=== PATIENT | male | born 1955 | race Hispanic/Latino ===

== ENCOUNTER 2019-09-19 09:48 | Observation (INO) | payer SELFPAY ==
[2019-09-19 11:14] VITALS: BMI 24.2
[2019-09-19] MEDS ORDERED: Morphine 4 MG/ML VIAL SLOW IVP SCH (13:15)
[2019-09-19] MEDS ORDERED: Ondansetron PF 4 MG/2 ML Vial IVP PRN (15:34)
[2019-09-19] MEDS ORDERED: Sodium Chloride 0.9% 1,000 ML IV SCH ×2 (15:34→23:30)
[2019-09-19] MEDS ORDERED: Ondansetron ODT 4 MG TAB SL PRN (15:34)
[2019-09-19] MEDS ORDERED: Ondansetron ODT 4 MG TAB PO PRN (16:17)
[2019-09-19] MEDS ORDERED: Acetaminophen 325 MG TAB PO PRN (16:17)
[2019-09-19] MEDS ORDERED: Ketorolac Tromethamine 30 MG/ML VIAL IVP PRN (16:19)
[2019-09-19] MEDS ORDERED: traMADol HCl 50 MG TAB PO PRN (16:20)
--- NOTE | 2019-09-19 18:27 | HP ---
PRIMARY CARE PHYSICIAN: None. CHIEF COMPLAINT: Right upper quadrant abdominal pain x3 days. HISTORY OF PRESENT ILLNESS: A 63-year-old Lithuanian-speaking male with no reported chronic medical comorbidities, who was transferred from [facility] after 2 ER visits in a several-hour span for complaints of right upper quadrant abdominal pain of 3 days' duration without radiation, and associated complaints of coughing episodes prompting further ED evaluation. The patient denies any trauma to the affected area. He notes pain started 3 days ago. He denies any prodromal complaints. He denies any nausea, vomiting, fevers, chills, dyspnea, dysuria, or any pain going into the back or shoulder blade. Family notes the patient has chronic alcohol use with beer intake, but has not had a drink since September 14. In the ER, CBC and vital signs were unremarkable and chemistries revealed mild transaminitis with initial lipase of 94 with repeat evaluation hours later of 170. A CT of abdomen and pelvis with contrast revealed normal-appearing pancreas and did note a right renal cyst measuring 7.5 x 6.6 x 6.9 cm. A urinalysis was unremarkable. The patient was administered multiple doses of IV morphine, 1 L of IV fluids, admitted for further evaluation. At bedside, the patient has received IV morphine additional dose 4 mg. h is accompanied by daughter and son-in-law. He rates his current pain is minimal, probably 2/10 in severity. He denies any prior similar complaints. He denies any history of pancreatitis. He denies any recent sick contacts. PAST MEDICAL HISTORY: Hypertension, not on medications; alcohol use. PAST SURGICAL HISTORY: Appendectomy. SOCIAL HISTORY: The patient lives at home. He works as a labor. He admits to tobacco and alcohol use. Denies any illicit drug use. ALLERGIES: NONE REPORTED. REVIEW OF SYSTEMS: Pertinent positives as per HPI. Remainder of review of systems is negative. MEDICATIONS: Home medication will be reviewed as per admission medication reconciliation. PHYSICAL EXAMINATION: VITAL SIGNS: Temperature most recently 102.3, pulse 70 to 81, blood pressure 152/103 to 153/103, oxygen saturation 96% on room air, respirations 16 to 20 and unlabored. GENERAL APPEARANCE: This is an elderly thin male, who is awake, alert, oriented, coherent, lucid, not in any obvious distress, and nontoxic in appearance. HEENT: Normocephalic, atraumatic. No facial asymmetry. Mucous membranes moist. Pupils equally round. Extraocular muscles intact. NECK: Supple. CARDIOVASCULAR: S1, S2. Regular rate and rhythm. No harsh murmurs. No reproducible chest wall tenderness to palpation. LUNGS: Bilateral equal air entry on posterior auscultation. Nonlabored respirations. No wheezing or rales. ABDOMEN: There is tenderness to palpation in the right upper quadrant and along the right chondral cartilage with mild palpation. There is no left upper quadrant or left flank or left CVA tenderness to palpation. There is no lower abdominal tenderness to palpation. Normoactive bowel sounds. No peritoneal signs appreciated. EXTREMITIES: No appreciable edema, cyanosis, or deformities. SKIN: Warm to touch without rash or pallor or abrasion. LABORATORY DATA: WBC 6.7, H and H 17.4/53.2, and platelets 131. Sodium 131, potassium 3.4, chloride 98, bicarb 24, glucose 125, BUN and creatinine 12/0.84, and GFR 90. Troponin-I negative. Lipase 170. AST 62, ALT 34, total protein 6.9, and albumin 4.2. Urinalysis reveals dark yellow appearance, 100 protein, 15 ketones, small blood, 4 to 6 rbc's. IMAGING STUDIES: One-view chest x-ray 09/18/2019 suggests no acute findings. Mild increase in linear interstitial density with pulmonary hyperinflation noted. A CT of abdomen and pelvis 09/19/2019 with contrast suggests no evidence of acute intraabdominal or pelvic abnormality. Diverticulosis. Right renal exophytic cyst of the right upper renal pole, measuring 7.5 cm x 6.6 cm and 6.9 cm. ASSESSMENT: 1. Right upper quadrant abdominal pain of unspecified etiology. The patient will be admitted to observation status and placed on Med/Surg unit. Unclear if this is musculoskeletal etiology from persistent coughing episodes or secondary to large right renal cyst or biliary etiology or perhaps from pulmonary infection, noting complaints of cough and objective fevers. At this time, low suspicion for acute pancreatitis and serum lipase levels and clinical presentation and CT findings did not suggest this. We will start on clear liquid diet and advance as the patient tolerates. We will obtain right upper quadrant abdominal ultrasound as well as request evaluation for the right renal cyst. We will start on IV Toradol as needed for anti-inflammatory relief and oral tramadol for breakthrough pain. We will trend fever curve and start on empiric antibiotics if the temperatures persist. Plan of care discussed with the patient and his family members at bedside. 2. Hyponatremia, continue isotonic saline. 3. Chronic alcohol dependence. Family notes the patient binges on beer. Last alcohol use was 09/14/2019 with no reported withdrawal symptoms. We will monitor for any withdrawal symptoms. 4. Nicotine dependence. The patient will benefit from cessation counseling. 5. Hypertension, controlled. Monitor for any other factors contributing to this. Monitor blood pressures. 6. Deep venous thrombosis prophylaxis: SCDs and ambulation. 7. Disposition: The patient will be admitted to observation status. Anticipate less than 24-hour stay pending the patient's clinical course. 8. Check a.m. labs, 09/20/2019. Job ID: [id number]
[2019-09-19] MEDS: Famotidine 20 MG TAB PO SCH (19:58)
[2019-09-19] MEDS ORDERED: hydrALAZINE 20 MG/ML VIAL SLOW IVP PRN (23:29)
[2019-09-20 07:45] VITALS: BP 170/98; TEMP 99.5
--- NOTE | 2019-09-20 07:46 | ULT ---
US Gallbladder RUQ: 09/20/2019 4:20 PM CLINICAL HISTORY: Right upper quadrant abdominal pain. STUDY: Limited right upper quadrant ultrasound of abdomen. COMPARISON: None. FINDINGS: Liver: Size: Normal. Echogenicity: Normal. Contour: Smooth. Mass: None. Bile ducts: No intrahepatic or extrahepatic biliary dilatation. Common bile duct measures 4 mm. Gallbladder: Normal. Pancreas: Not well visualized Right kidney: No pelvicalyceal dilatation. Right kidney measuring 12.7 cm in length. There is a large cyst in the superior pole the right kidney measuring 7.3 cm in greatest dimension. IMPRESSION: Right renal cyst
[2019-09-20] MEDS ORDERED: FLU VACC QS2019-20(6MOS UP)/PF 60 MCG/0.5 ML SYRINGE IM ONE (09:00)
[2019-09-20] MEDS: Famotidine 20 MG TAB PO SCH (10:27)
== END 2019-09-20 16:25 | disposition home or self-care (01) ==
LOC: T4-B 09:48 → INTOOBSV 09:48
PROVIDERS: ADMIT Internal Medicine; ATTEND Internal Medicine
DX: R10.11 Right upper quadrant pain (principal); R05 Cough; E87.1 Hypo-osmolality and hyponatremia; F17.200 Nicotine dependence, unspecified, uncomplicated; I10 Essential (primary) hypertension; F10.20 Alcohol dependence, uncomplicated; Q61.01 Congenital single renal cyst; K57.30 Diverticulosis of large intestine without perforation or abscess without bleeding
CPT/HCPCS: 76705; 96361; 96374; G0378; J1885; J2270

== ENCOUNTER 2023-08-01 21:38 | Inpatient (IN) | payer SELFPAY ==
[~2023-08-01 21:38] MED LIST: Iopamidol-370 76% 500 ML MDV (1 ML CHARGE) ONE
[2023-08-01 22:16] LABS: Bilirubin 3+ (Negative); Blood, Urine Negative (Negative); Clarity Clear (Clear); Glucose, Urine (Dipstick) Normal (Negative); Ketone, Urine Negative (Negative); Leukocyte Negative Leu/uL (Negative); Nitrite Negative (Negative); Protein, Urine (Dipstick) Negative (Neg-Trace); Specific Gravity, Urine 1.014 (1.002-1.036); pH, Urine 6.5 (5.0-9.0)
[2023-08-01 22:23] LABS: CAUTI Indications for Culture Pelvic or flank pain; RBC/HPF None Seen HPF (0-3); Squamous Epithelial 0-3 HPF (0-3); WBC/HPF 0-3 HPF (0-3)
[2023-08-01 22:24] LABS: Bacteria/HPF None Seen HPF (None Seen)
[2023-08-01 22:25] LABS: Amphetamine Not Detected (NotDetected); Barbiturates Screen Not Detected (NotDetected); Benzodiazepine Screen Not Detected (NotDetected); Cocaine Metabolite Screen Not Detected (NotDetected); Methadone Not Detected (NotDetected); Methamphetamine Not Detected (NotDetected); Opiate Screen Not Detected (NotDetected); Oxycodone Screen Not Detected (NotDetected); Phencyclidine (PCP) Not Detected (NotDetected); THC/Cannabinoid Screen Not Detected (NotDetected); Tricyclic Screen Not Detected (NotDetected); Urine Culture Reflex No No
[2023-08-01 22:32] LABS: #Basophils 0.1 thou/uL (0.0-0.2); #Eosinphils 0.3 thou/uL (0.0-0.7); #Monocytes 1.6 thou/uL (0.11-0.59); %Eosinophils 2.4 % (0.0-10.0); %Lymphocytes 16.8 % (21.0-51.0); %Monocytes 12.9 % (0.0-10.0); %Neutrophils 66.5 % (42.0-75.0); Hematocrit 34.6 % (42.0-52.0); Hemoglobin 12.2 g/dL (14.0-18.0); Mean Corpuscular HGB CONC 35.3 g/dL (32.0-36.0); Mean Corpuscular Hemoglobin 37.8 pg (27.0-31.0); Mean Corpuscular Volume 107.1 fl (78.0-98.0); Mean Platelet Volume 9.8 fL (7.4-10.4); RBC Distribution Width 16.1 % (11.5-14.5); Red Blood Cell (RBC) Count 3.23 mill/uL (4.70-6.10); White Blood Cell (WBC) Count 12.1 10x3/uL (4.8-10.8)
[2023-08-01 22:35] LABS: Platelet Count 118 10x3/uL (130-400)
[2023-08-01 22:57] LABS: ALT (SGPT) 22 U/L (8-55); AST (SGOT) 76 U/L (5-34); Albumin 3.7 g/dL (3.4-4.8); Alkaline Phosphatase 186 U/L (40-110); Anion Gap 13 mmol/L (10-20); BUN (Urea Nitrogen) 8 mg/dL (8.4-25.7); Bilirubin, Total 23.2 mg/dL (0.2-1.2); Calc. Creatinine Clearance 0 mL/min (70-130); Carbon Dioxide 22 mmol/L (23-31); Chloride 101 mmol/L (98-107); Estimated GFR 98; Globulin 3.9 g/dL (2.4-3.5); Glucose 80 mg/dL (80-115); Potassium 3.3 mmol/L (3.5-5.1); Protein, Total 7.6 g/dL (5.8-8.1); Sodium 133 mmol/L (136-145)
[2023-08-01 22:58] LABS: Acetaminophen Less than 10 mcg/mL (10.0-30.0); Alcohol Less than 10.0 mg/dL (Less than 10); Lipase 97 U/L (8-78); Magnesium 1.9 mg/dL (1.6-2.6); Salicylate Less than 8.0 mg/dL (15.0-30.0)
[2023-08-02 01:04] LABS: INR-International Normal Ratio 1.6; Prothrombin Time 19.5 sec (12.0-14.7)
[2023-08-02 01:05] LABS: PTT 46.3 sec (22.9-36.1)
[2023-08-02 01:17] LABS: Troponin I Less than 0.010 ng/mL (< 0.028)
[2023-08-02] MEDS ORDERED: Ondansetron ODT 4 MG TAB SL PRN (06:00)
[2023-08-02] MEDS ORDERED: Ondansetron PF 4 MG/2 ML Vial IVP PRN (06:00)
[2023-08-02] MEDS ORDERED: Ondansetron ODT 4 MG TAB PO PRN (08:59)
[2023-08-02] MEDS ORDERED: Lorazepam 1 MG TAB PO PRN (08:59)
[2023-08-02] MEDS ORDERED: Lorazepam 2 MG/ML VIAL IM PRN (08:59)
[2023-08-02] MEDS ORDERED: Electrolyte Replacement Protocol 1 EACH FS SCH (09:00)
[2023-08-02] MEDS ORDERED: prednisoLONE 10 MG ODT TAB PO SCH (09:15)
[2023-08-02] MEDS ORDERED: Potassium Bicarbonate/Cit Ac 20 MEQ TAB PO SCH (09:15)
[2023-08-02] MEDS: Thiamine HCl 200 MG/2 ML VIAL SLOW IVP SCH (10:14)
[2023-08-02] MEDS: Folic Acid 1 MG TAB PO SCH (10:15)
[2023-08-02] MEDS: Multivit, Therapeutic 1 TAB PO SCH (10:15)
[2023-08-02] MEDS ORDERED: Magnesium 2 GM/50 ML(in water) 2 GM in Premix 1 BAG IVPB SCH (12:00)
[2023-08-02 12:46] VITALS: BMI 22.8
[2023-08-02] MEDS ORDERED: Multivitamins, Adult 10 ML, Folic Acid 1 MG, Thiamine HCl 100 MG in Dextrose 5 %-0.45 %... IV SCH (18:00)
[2023-08-03 06:54] LABS: #Neutrophils 8.4 thou/uL (1.40-6.50); %Basophils 0.3 % (0.0-1.0); %Eosinophils 0.2 % (0.0-10.0); %Monocytes 9.4 % (0.0-10.0); %Neutrophils 76.6 % (42.0-75.0); Hematocrit 32.6 % (42.0-52.0); Hemoglobin 11.4 g/dL (14.0-18.0); Mean Corpuscular Hemoglobin 37.7 pg (27.0-31.0); Mean Corpuscular Volume 107.9 fl (78.0-98.0); Mean Platelet Volume 10.2 fL (7.4-10.4); Platelet Count 126 10x3/uL (130-400); RBC Distribution Width 16.4 % (11.5-14.5); Red Blood Cell (RBC) Count 3.02 mill/uL (4.70-6.10)
[2023-08-03 07:43] LABS: ALT (SGPT) 16 U/L (8-55); AST (SGOT) 46 U/L (5-34); Albumin 3.1 g/dL (3.4-4.8); Alkaline Phosphatase 153 U/L (40-110); Anion Gap 10 mmol/L (10-20); BUN (Urea Nitrogen) 11 mg/dL (8.4-25.7); Bilirubin, Total 19.5 mg/dL (0.2-1.2); Calc. Creatinine Clearance 72 mL/min (70-130); Calcium 8.6 mg/dL (7.8-10.44); Carbon Dioxide 23 mmol/L (23-31); Chloride 106 mmol/L (98-107); Estimated GFR 99; Globulin 3.4 g/dL (2.4-3.5); Glucose 96 mg/dL (80-115); Potassium 3.1 mmol/L (3.5-5.1); Protein, Total 6.5 g/dL (5.8-8.1); Sodium 136 mmol/L (136-145)
[2023-08-03] MEDS ORDERED: Potassium Chloride 20 MEQ TAB PO SCH (08:15)
[2023-08-03] MEDS ORDERED: Lorazepam 1 MG TAB PO PRN (08:59)
[2023-08-03] MEDS: Multivit, Therapeutic 1 TAB PO SCH (09:07)
[2023-08-03] MEDS: Folic Acid 1 MG TAB PO SCH (09:07)
[2023-08-03] MEDS: prednisoLONE 10 MG ODT TAB PO SCH (09:07)
[2023-08-03] MEDS: Thiamine HCl 200 MG/2 ML VIAL SLOW IVP SCH (09:08)
[2023-08-03 12:46] LABS: Syphilis Antibody Nonreactive (Nonreactive)
[2023-08-04 07:56] VITALS: TEMP 98.3
[2023-08-04] MEDS: prednisoLONE 10 MG ODT TAB PO SCH (08:31)
[2023-08-04] MEDS: Multivit, Therapeutic 1 TAB PO SCH (08:31)
[2023-08-04] MEDS: Folic Acid 1 MG TAB PO SCH (08:31)
[2023-08-04] MEDS: Thiamine HCl 200 MG/2 ML VIAL SLOW IVP SCH (08:32)
[2023-08-04] MEDS ORDERED: Lorazepam 1 MG TAB PO PRN (08:59)
[2023-08-04 09:12] LABS: #Basophils 0.1 thou/uL (0.0-0.2); #Eosinphils 0.1 thou/uL (0.0-0.7); #Monocytes 1.2 thou/uL (0.11-0.59); #Neutrophils 9.2 thou/uL (1.40-6.50); %Basophils 0.4 % (0.0-1.0); %Eosinophils 0.5 % (0.0-10.0); %Monocytes 9.6 % (0.0-10.0); Hematocrit 33.8 % (42.0-52.0); Mean Corpuscular HGB CONC 35.5 g/dL (32.0-36.0); Mean Corpuscular Hemoglobin 37.7 pg (27.0-31.0); Mean Corpuscular Volume 106.3 fl (78.0-98.0); Mean Platelet Volume 10.6 fL (7.4-10.4); Platelet Count 139 10x3/uL (130-400); RBC Distribution Width 17.1 % (11.5-14.5); Red Blood Cell (RBC) Count 3.18 mill/uL (4.70-6.10); White Blood Cell (WBC) Count 12.8 10x3/uL (4.8-10.8)
[2023-08-04 10:40] LABS: ALT (SGPT) 19 U/L (8-55); AST (SGOT) 51 U/L (5-34); Albumin 2.9 g/dL (3.4-4.8); Alkaline Phosphatase 150 U/L (40-110); Anion Gap 15 mmol/L (10-20); BUN (Urea Nitrogen) 13 mg/dL (8.4-25.7); Bilirubin, Total 15.2 mg/dL (0.2-1.2); Calc. Creatinine Clearance 73 mL/min (70-130); Calcium 8.4 mg/dL (7.8-10.44); Carbon Dioxide 18 mmol/L (23-31); Chloride 108 mmol/L (98-107); Estimated GFR 99; Globulin 3.6 g/dL (2.4-3.5); Glucose 74 mg/dL (80-115); Potassium 3.4 mmol/L (3.5-5.1); Protein, Total 6.5 g/dL (5.8-8.1); Sodium 138 mmol/L (136-145)
[2023-08-04] MEDS ORDERED: Potassium Chloride 20 MEQ TAB PO SCH (11:00)
[2023-08-04 16:37] VITALS: BP 129/77
[2023-08-05] MEDS ORDERED: Lorazepam 0.5 MG TAB PO PRN (08:59)
[2023-08-05] MEDS ORDERED: Thiamine 100 MG TAB PO SCH (09:00)
== END 2023-08-04 17:25 | disposition home or self-care (01) | DRG 432 ==
LOC: ERS 21:38 → T4-B 08-02 05:36
PROVIDERS: ADMIT Internal Medicine; ATTEND Emergency Medicine
DX: K70.10 Alcoholic hepatitis without ascites (principal); K85.90 Acute pancreatitis without necrosis or infection, unspecified; K76.6 Portal hypertension; E87.20 Acidosis, unspecified; F10.139 Alcohol abuse with withdrawal, unspecified; K70.30 Alcoholic cirrhosis of liver without ascites; E87.6 Hypokalemia; E80.6 Other disorders of bilirubin metabolism; I10 Essential (primary) hypertension; Z79.2 Long term (current) use of antibiotics; Z79.899 Other long term (current) drug therapy; Z87.891 Personal history of nicotine dependence; Z71.41 Alcohol abuse counseling and surveillance of alcoholic
CPT/HCPCS: 36415; 71045; 74177; 76705; 80053; 80306; 80307; 81001; 82140; 83690; 83735; 84484; 85025; 85610; 85730; 86780; 93005; J3411; J3475; J7042; Q9967

== ENCOUNTER 2023-08-19 19:29 | Emergency (ER) | payer SELFPAY ==
[2023-08-19 20:39] LABS: #Neutrophils 14.5 thou/uL (1.40-6.50); %Basophils 0.1 % (0.0-1.0); %Eosinophils 0.2 % (0.0-10.0); %Lymphocytes 5.5 % (21.0-51.0); %Monocytes 5.9 % (0.0-10.0); %Neutrophils 87.2 % (42.0-75.0); Hematocrit 34.4 % (42.0-52.0); Hemoglobin 12.2 g/dL (14.0-18.0); Mean Corpuscular HGB CONC 35.5 g/dL (32.0-36.0); Mean Corpuscular Hemoglobin 37.2 pg (27.0-31.0); Mean Corpuscular Volume 104.9 fl (78.0-98.0); Mean Platelet Volume 9.6 fL (7.4-10.4); Platelet Count 128 10x3/uL (130-400); RBC Distribution Width 16.9 % (11.5-14.5); Red Blood Cell (RBC) Count 3.28 mill/uL (4.70-6.10); White Blood Cell (WBC) Count 16.7 10x3/uL (4.8-10.8)
[2023-08-19 21:06] LABS: Troponin I Less than 0.010 ng/mL (< 0.028)
[2023-08-19 21:13] LABS: ALT (SGPT) 38 U/L (8-55); AST (SGOT) 55 U/L (5-34); Albumin 2.9 g/dL (3.4-4.8); Alkaline Phosphatase 163 U/L (40-110); Anion Gap 12 mmol/L (10-20); BUN (Urea Nitrogen) 16 mg/dL (8.4-25.7); Bilirubin, Total 13.2 mg/dL (0.2-1.2); Calc. Creatinine Clearance 0 mL/min (70-130); Calcium 8.7 mg/dL (7.8-10.44); Carbon Dioxide 23 mmol/L (23-31); Chloride 105 mmol/L (98-107); Estimated GFR 99; Globulin 3.4 g/dL (2.4-3.5); Glucose 149 mg/dL (80-115); Lipase 86 U/L (8-78); Potassium 3.8 mmol/L (3.5-5.1); Protein, Total 6.3 g/dL (5.8-8.1); Sodium 136 mmol/L (136-145)
[2023-08-19] MEDS ORDERED: Morphine 4 MG/ML VIAL ONE (21:55)
[2023-08-19] MEDS ORDERED: Ondansetron PF 4 MG/2 ML Vial ONE (21:55)
[2023-08-20 00:22] LABS: Bacteria/HPF None Seen HPF (None Seen); Bilirubin 1+ (Negative); Blood, Urine Negative (Negative); CAUTI Indications for Culture Pelvic or flank pain; Clarity Clear (Clear); Glucose, Urine (Dipstick) Normal (Negative); Ketone, Urine Negative (Negative); Leukocyte Negative Leu/uL (Negative); Nitrite Negative (Negative); Protein, Urine (Dipstick) Negative (Neg-Trace); RBC/HPF None Seen HPF (0-3); Specific Gravity, Urine 1.036 (1.002-1.036); Squamous Epithelial None Seen HPF (0-3); Urobilinogen 3 mg/dL (Less than 2); WBC/HPF 0-3 HPF (0-3); pH, Urine 6.5 (5.0-9.0)
[2023-08-20 00:24] LABS: Urine Culture Reflex No No
== END 2023-08-20 01:12 | disposition home or self-care (01) ==
LOC: ERS 19:29
DX: K70.31 Alcoholic cirrhosis of liver with ascites (principal); K80.20 Calculus of gallbladder without cholecystitis without obstruction; I10 Essential (primary) hypertension; Z87.891 Personal history of nicotine dependence; Z79.899 Other long term (current) drug therapy
CPT/HCPCS: 36415; 74177; 76705; 80053; 81001; 82248; 83690; 83735; 84484; 85025; 93005; 94760; 96374; 96375; J2270; J2405

== ENCOUNTER 2023-09-02 12:12 | Outpatient (CLI) | payer OTHER | END 2023-09-02 12:13 | disposition home or self-care (01) | LOC: BICRAD 12:12 | PROVIDERS: ATTEND Physician Assistant Medical | DX: R05.9 Cough, unspecified (principal); K70.30 Alcoholic cirrhosis of liver without ascites; R60.0 Localized edema; R32 Unspecified urinary incontinence; R50.9 Fever, unspecified; Z87.19 Personal history of other diseases of the digestive system | CPT/HCPCS: 71046 ==

== ENCOUNTER 2023-09-19 23:19 | Inpatient (IN) | payer MEDICAID, SELFPAY ==
[~2023-09-19 23:19] MED LIST changes: +Iopamidol 370 76% 100 ML VIAL ONE; -Iopamidol-370 76% 500 ML MDV (1 ML CHARGE) ONE
[2023-09-19 23:57] LABS: #Basophils 0.1 thou/uL (0.0-0.2); #Eosinphils 0.3 thou/uL (0.0-0.7); #Monocytes 1.7 thou/uL (0.11-0.59); #Neutrophils 14.8 thou/uL (1.40-6.50); %Basophils 0.6 % (0.0-1.0); %Eosinophils 1.6 % (0.0-10.0); %Monocytes 8.9 % (0.0-10.0); %Neutrophils 77.3 % (42.0-75.0); Hematocrit 38.3 % (42.0-52.0); Hemoglobin 13.1 g/dL (14.0-18.0); Mean Corpuscular HGB CONC 34.2 g/dL (32.0-36.0); Mean Corpuscular Hemoglobin 36.1 pg (27.0-31.0); Mean Corpuscular Volume 105.5 fl (78.0-98.0); Mean Platelet Volume 9.8 fL (7.4-10.4); RBC Distribution Width 17.9 % (11.5-14.5); Red Blood Cell (RBC) Count 3.63 mill/uL (4.70-6.10); White Blood Cell (WBC) Count 19.1 10x3/uL (4.8-10.8)
[2023-09-20 00:12] LABS: Platelet Count 79 10x3/uL (130-400)
[2023-09-20 00:19] LABS: ALT (SGPT) 45 U/L (8-55); AST (SGOT) 62 U/L (5-34); Albumin 2.7 g/dL (3.4-4.8); Alkaline Phosphatase 152 U/L (40-110); Anion Gap 15 mmol/L (10-20); BUN (Urea Nitrogen) 16 mg/dL (8.4-25.7); Bilirubin, Total 24.5 mg/dL (0.2-1.2); Calc. Creatinine Clearance 0 mL/min (70-130); Carbon Dioxide 24 mmol/L (23-31); Chloride 96 mmol/L (98-107); Estimated GFR 85; Globulin 3.1 g/dL (2.4-3.5); Glucose 112 mg/dL (80-115); INR-International Normal Ratio 1.7; Magnesium 1.8 mg/dL (1.6-2.6); Potassium 4.2 mmol/L (3.5-5.1); Protein, Total 5.8 g/dL (5.8-8.1); Prothrombin Time 21.1 sec (12.0-14.7); Sodium 131 mmol/L (136-145)
[2023-09-20 00:20] LABS: PTT 40.9 sec (22.9-36.1)
[2023-09-20 00:28] LABS: Troponin I 0.141 ng/mL (< 0.028)
[2023-09-20 00:32] LABS: Anisocytosis SLIGHT = 6-15 cells (100X) (0-5/hpf); Macrocytosis SLIGHT = 6-15 cells (100X) (0-5/hpf); Platelet Adequacy Comment Appears Decreased
[2023-09-20] MEDS ORDERED: fentaNYL 50 mcg/mL 1 mL Vial ONE (01:02)
[2023-09-20 01:49] LABS: ALT (SGPT) 46 U/L (8-55); AST (SGOT) 61 U/L (5-34); Albumin 2.7 g/dL (3.4-4.8); Alkaline Phosphatase 151 U/L (40-110); Bilirubin, Total 24.7 mg/dL (0.2-1.2); Protein, Total 5.8 g/dL (5.8-8.1)
[2023-09-20 02:21] LABS: Bilirubin, Direct 15.3 mg/dL (0.1-0.3)
[2023-09-20] MEDS ORDERED: Sodium Chloride 0.9% 100 ML ONE (02:41)
[2023-09-20] MEDS ORDERED: cefTRIAXone (ROCEPHIN) 2 GM VIAL ONE (02:41)
[2023-09-20] MEDS ORDERED: Ondansetron ODT 4 MG TAB PO PRN (03:56)
[2023-09-20] MEDS ORDERED: metroNIDAZOLE 500 MG (100 mL) BAG ONE ×2 (06:00→13:04)
[2023-09-20] MEDS: metroNIDAZOLE 500 MG in Premix 1 BAG IVPB SCH ×3 (06:00→20:25)
[2023-09-20 06:51] LABS: #Basophils 0.1 thou/uL (0.0-0.2); #Eosinphils 0.3 thou/uL (0.0-0.7); #Neutrophils 9.6 thou/uL (1.40-6.50); %Basophils 0.7 % (0.0-1.0); %Lymphocytes 12.4 % (21.0-51.0); %Monocytes 8.2 % (0.0-10.0); %Neutrophils 75.2 % (42.0-75.0); Hematocrit 37.7 % (42.0-52.0); Hemoglobin 12.4 g/dL (14.0-18.0); Mean Corpuscular HGB CONC 32.9 g/dL (32.0-36.0); Mean Corpuscular Hemoglobin 36.8 pg (27.0-31.0); Mean Platelet Volume 10.1 fL (7.4-10.4); RBC Distribution Width 17.9 % (11.5-14.5); Red Blood Cell (RBC) Count 3.37 mill/uL (4.70-6.10); White Blood Cell (WBC) Count 12.7 10x3/uL (4.8-10.8)
[2023-09-20 07:12] LABS: Anion Gap 11 mmol/L (10-20); BUN (Urea Nitrogen) 14 mg/dL (8.4-25.7); Calc. Creatinine Clearance 78 mL/min (70-130); Calcium 7.9 mg/dL (7.8-10.44); Carbon Dioxide 19 mmol/L (23-31); Chloride 101 mmol/L (98-107); Estimated GFR 99; Glucose 90 mg/dL (80-115); Potassium 3.6 mmol/L (3.5-5.1); Sodium 127 mmol/L (136-145)
[2023-09-20 07:26] LABS: Platelet Count 57 10x3/uL (130-400)
[2023-09-20] MEDS ORDERED: Thiamine 100 MG TAB ONE (08:42)
[2023-09-20] MEDS ORDERED: Folic Acid 1 MG TAB ONE (08:42)
[2023-09-20] MEDS ORDERED: Multivit, Therapeutic 1 TAB ONE (08:42)
[2023-09-20] MEDS ORDERED: Lactulose 20 GM (30 mL) UDCUP ONE ×2 (08:43→13:04)
[2023-09-20] MEDS ORDERED: Enoxaparin 40 MG (0.4 mL) SYRINGE SC SCH (09:00)
[2023-09-20 09:03] LABS: Mean Corpuscular Volume 111.9 fl (78.0-98.0)
[2023-09-20] MEDS: Folic Acid 1 MG TAB PO SCH (10:32)
[2023-09-20] MEDS: Thiamine 100 MG TAB PO SCH (10:32)
[2023-09-20] MEDS: Lactulose 20 GM (30 mL) UDCUP PO SCH ×5 (10:32→22:48)
[2023-09-20] MEDS: Multivit, Therapeutic 1 TAB PO SCH (10:32)
[2023-09-20 11:51] LABS: Acetaminophen Less than 10 mcg/mL (10.0-30.0); Alcohol Less than 10.0 mg/dL (Less than 10); Salicylate Less than 8.0 mg/dL (15.0-30.0)
[2023-09-20 17:26] LABS: Bacteria/HPF None Seen HPF (None Seen); Bilirubin 4+ (Negative); Blood, Urine Negative (Negative); CAUTI Indications for Culture Alt mental st,lethar; Clarity Clear (Clear); Glucose, Urine (Dipstick) Normal (Negative); Ketone, Urine Negative (Negative); Leukocyte Negative Leu/uL (Negative); Nitrite Negative (Negative); Protein, Urine (Dipstick) Negative (Neg-Trace); RBC/HPF None Seen HPF (0-3); Squamous Epithelial 0-3 HPF (0-3); WBC/HPF 0-3 HPF (0-3); pH, Urine 6.5 (5.0-9.0)
[2023-09-20 17:29] LABS: Urine Culture Reflex No No
[2023-09-20 17:31] LABS: Amphetamine Not Detected (NotDetected); Barbiturates Screen Not Detected (NotDetected); Benzodiazepine Screen Not Detected (NotDetected); Cocaine Metabolite Screen Not Detected (NotDetected); Methadone Not Detected (NotDetected); Methamphetamine Not Detected (NotDetected); Opiate Screen Not Detected (NotDetected); Oxycodone Screen Not Detected (NotDetected); Phencyclidine (PCP) Not Detected (NotDetected); THC/Cannabinoid Screen Not Detected (NotDetected); Tricyclic Screen Not Detected (NotDetected)
[2023-09-20] MEDS: Ondansetron PF 4 MG/2 ML Vial IVP PRN (20:31)
[2023-09-21] MEDS: cefTRIAXone\\ROCEPHIN 2 GM in Sodium Chloride 0.9% 100 ML IVPB SCH (04:03)
[2023-09-21] MEDS: metroNIDAZOLE 500 MG in Premix 1 BAG IVPB SCH ×3 (04:38→21:26)
[2023-09-21 06:39] LABS: #Basophils 0.1 thou/uL (0.0-0.2); #Eosinphils 0.3 thou/uL (0.0-0.7); #Monocytes 1.3 thou/uL (0.11-0.59); #Neutrophils 10.1 thou/uL (1.40-6.50); %Basophils 0.4 % (0.0-1.0); %Eosinophils 2.1 % (0.0-10.0); %Lymphocytes 11.3 % (21.0-51.0); %Monocytes 9.4 % (0.0-10.0); %Neutrophils 75.5 % (42.0-75.0); Hematocrit 33.8 % (42.0-52.0); Mean Corpuscular HGB CONC 35.5 g/dL (32.0-36.0); Mean Corpuscular Hemoglobin 37.3 pg (27.0-31.0); Mean Platelet Volume 9.9 fL (7.4-10.4); RBC Distribution Width 17.3 % (11.5-14.5); Red Blood Cell (RBC) Count 3.22 mill/uL (4.70-6.10); White Blood Cell (WBC) Count 13.4 10x3/uL (4.8-10.8)
[2023-09-21 06:40] LABS: Platelet Count 79 10x3/uL (130-400)
[2023-09-21 06:55] LABS: Prothrombin Time 23.9 sec (12.0-14.7)
[2023-09-21 06:56] LABS: PTT 44.1 sec (22.9-36.1)
[2023-09-21 06:59] LABS: ALT (SGPT) 38 U/L (8-55); AST (SGOT) 48 U/L (5-34); Albumin 2.4 g/dL (3.4-4.8); Alkaline Phosphatase 143 U/L (40-110); Anion Gap 12 mmol/L (10-20); BUN (Urea Nitrogen) 15 mg/dL (8.4-25.7); Bilirubin, Total 24.6 mg/dL (0.2-1.2); Calc. Creatinine Clearance 64 mL/min (70-130); Calcium 7.9 mg/dL (7.8-10.44); Carbon Dioxide 24 mmol/L (23-31); Chloride 105 mmol/L (98-107); Estimated GFR 89; Globulin 2.8 g/dL (2.4-3.5); Glucose 102 mg/dL (80-115); Magnesium 1.9 mg/dL (1.6-2.6); Potassium 3.6 mmol/L (3.5-5.1); Protein, Total 5.2 g/dL (5.8-8.1); Sodium 137 mmol/L (136-145)
[2023-09-21] MEDS: Furosemide 40 MG TAB PO SCH (08:47)
[2023-09-21] MEDS: Folic Acid 1 MG TAB PO SCH (08:48)
[2023-09-21] MEDS: Spironolactone 100 MG TAB PO SCH (08:48)
[2023-09-21] MEDS: Thiamine 100 MG TAB PO SCH (08:49)
[2023-09-21] MEDS: Multivit, Therapeutic 1 TAB PO SCH (08:49)
[2023-09-21] MEDS: Lactulose 20 GM (30 mL) UDCUP PO SCH ×4 (08:53→21:21)
[2023-09-22] MEDS: cefTRIAXone\\ROCEPHIN 2 GM in Sodium Chloride 0.9% 100 ML IVPB SCH (02:23)
[2023-09-22] MEDS: metroNIDAZOLE 500 MG in Premix 1 BAG IVPB SCH ×3 (04:10→21:07)
[2023-09-22 05:21] LABS: #Basophils 0.1 thou/uL (0.0-0.2); #Eosinphils 0.3 thou/uL (0.0-0.7); #Monocytes 1.4 thou/uL (0.11-0.59); #Neutrophils 12.4 thou/uL (1.40-6.50); %Basophils 0.4 % (0.0-1.0); %Eosinophils 1.9 % (0.0-10.0); %Lymphocytes 11.4 % (21.0-51.0); %Monocytes 8.7 % (0.0-10.0); %Neutrophils 76.6 % (42.0-75.0); Hematocrit 32.4 % (42.0-52.0); Hemoglobin 11.5 g/dL (14.0-18.0); Mean Corpuscular HGB CONC 35.5 g/dL (32.0-36.0); Mean Corpuscular Hemoglobin 37.5 pg (27.0-31.0); Mean Corpuscular Volume 105.5 fl (78.0-98.0); Mean Platelet Volume 10.9 fL (7.4-10.4); RBC Distribution Width 17.2 % (11.5-14.5); Red Blood Cell (RBC) Count 3.07 mill/uL (4.70-6.10); White Blood Cell (WBC) Count 16.2 10x3/uL (4.8-10.8)
[2023-09-22 05:50] LABS: INR-International Normal Ratio 2.2
[2023-09-22 05:51] LABS: PTT 48.6 sec (22.9-36.1)
[2023-09-22 05:52] LABS: ALT (SGPT) 30 U/L (8-55); AST (SGOT) 45 U/L (5-34); Albumin 2.3 g/dL (3.4-4.8); Alkaline Phosphatase 128 U/L (40-110); Anion Gap 11 mmol/L (10-20); BUN (Urea Nitrogen) 16 mg/dL (8.4-25.7); Bilirubin, Total 23.4 mg/dL (0.2-1.2); Calc. Creatinine Clearance 65 mL/min (70-130); Carbon Dioxide 22 mmol/L (23-31); Chloride 102 mmol/L (98-107); Estimated GFR 90; Globulin 2.7 g/dL (2.4-3.5); Glucose 104 mg/dL (80-115); Magnesium 1.8 mg/dL (1.6-2.6); Potassium 3.8 mmol/L (3.5-5.1); Sodium 131 mmol/L (136-145)
[2023-09-22 06:13] LABS: Platelet Count 81 10x3/uL (130-400)
[2023-09-22] MEDS: Lactulose 20 GM (30 mL) UDCUP PO SCH ×2 (09:53→21:05)
[2023-09-22] MEDS: Thiamine 100 MG TAB PO SCH (09:54)
[2023-09-22] MEDS: Furosemide 40 MG TAB PO SCH (09:54)
[2023-09-22] MEDS: Spironolactone 100 MG TAB PO SCH (09:54)
[2023-09-22] MEDS: Multivit, Therapeutic 1 TAB PO SCH (09:54)
[2023-09-22] MEDS: Folic Acid 1 MG TAB PO SCH (09:54)
[2023-09-22] MEDS: Ondansetron PF 4 MG/2 ML Vial IVP PRN (22:22)
[2023-09-23] MEDS: cefTRIAXone\\ROCEPHIN 2 GM in Sodium Chloride 0.9% 100 ML IVPB SCH (04:07)
[2023-09-23] MEDS: metroNIDAZOLE 500 MG in Premix 1 BAG IVPB SCH ×3 (05:28→21:52)
[2023-09-23 07:06] LABS: #Basophils 0.1 thou/uL (0.0-0.2); #Eosinphils 0.3 thou/uL (0.0-0.7); #Monocytes 1.5 thou/uL (0.11-0.59); #Neutrophils 11.3 thou/uL (1.40-6.50); %Basophils 0.5 % (0.0-1.0); %Lymphocytes 11.6 % (21.0-51.0); %Monocytes 9.8 % (0.0-10.0); %Neutrophils 74.9 % (42.0-75.0); Hematocrit 36.4 % (42.0-52.0); Hemoglobin 12.7 g/dL (14.0-18.0); Mean Corpuscular HGB CONC 34.9 g/dL (32.0-36.0); Mean Corpuscular Hemoglobin 36.9 pg (27.0-31.0); Mean Corpuscular Volume 105.8 fl (78.0-98.0); Mean Platelet Volume 9.9 fL (7.4-10.4); Red Blood Cell (RBC) Count 3.44 mill/uL (4.70-6.10); White Blood Cell (WBC) Count 15.1 10x3/uL (4.8-10.8)
[2023-09-23 07:08] LABS: Platelet Count 84 10x3/uL (130-400)
[2023-09-23 07:20] LABS: INR-International Normal Ratio 2.3; Prothrombin Time 26.4 sec (12.0-14.7)
[2023-09-23 07:21] LABS: PTT 48.9 sec (22.9-36.1)
[2023-09-23 07:35] LABS: ALT (SGPT) 31 U/L (8-55); AST (SGOT) 46 U/L (5-34); Albumin 2.3 g/dL (3.4-4.8); Alkaline Phosphatase 136 U/L (40-110); Anion Gap 11 mmol/L (10-20); BUN (Urea Nitrogen) 20 mg/dL (8.4-25.7); Calc. Creatinine Clearance 47 mL/min (70-130); Calcium 8.4 mg/dL (7.8-10.44); Carbon Dioxide 24 mmol/L (23-31); Chloride 101 mmol/L (98-107); Estimated GFR 62; Glucose 103 mg/dL (80-115); Potassium 3.7 mmol/L (3.5-5.1); Protein, Total 5.3 g/dL (5.8-8.1); Sodium 132 mmol/L (136-145)
[2023-09-23 07:54] LABS: Bilirubin, Total 27.5 mg/dL (0.2-1.2)
[2023-09-23] MEDS ORDERED: Sodium Bicarbonate 2.5 MEQ/5 ML SDV ONE (08:14)
[2023-09-23] MEDS ORDERED: Lidocaine 1% w/Epinephrine 1:100K 20 ML VIAL ONE (08:14)
[2023-09-23] MEDS ORDERED: Lidocaine 1% PF 5 ML VIAL ONE (09:07)
[2023-09-23] MEDS: Furosemide 40 MG TAB PO SCH (10:40)
[2023-09-23] MEDS: Spironolactone 100 MG TAB PO SCH (10:40)
[2023-09-23] MEDS: Lactulose 20 GM (30 mL) UDCUP PO SCH ×2 (10:40→19:54)
[2023-09-23] MEDS: Acetaminophen 325 MG TAB PO PRN (10:40)
[2023-09-23] MEDS: Thiamine 100 MG TAB PO SCH (10:41)
[2023-09-23] MEDS: Folic Acid 1 MG TAB PO SCH (10:41)
[2023-09-23] MEDS: Multivit, Therapeutic 1 TAB PO SCH (10:41)
[2023-09-23 12:59] LABS: RBC Count-Automated (BF) 12 /cu.mm; WBC/Nucleated-Auto (BF) 108 /cu.mm
[2023-09-23 14:21] LABS: BF Color Yellow; Body Fluid Source Ascites Body Fluid; Clarity Clear (Clear); Tube # EDTA
[2023-09-23 14:23] LABS: BF Segmented Neutrophils 9 %; Cell Count Non Hematic 49 %; Lymphocytes 42 %
[2023-09-23] MEDS: Ondansetron PF 4 MG/2 ML Vial IVP PRN (23:09)
[2023-09-24] MEDS: cefTRIAXone\\ROCEPHIN 2 GM in Sodium Chloride 0.9% 100 ML IVPB SCH (02:43)
[2023-09-24 04:24] LABS: #Basophils 0.1 thou/uL (0.0-0.2); #Eosinphils 0.3 thou/uL (0.0-0.7); #Monocytes 1.5 thou/uL (0.11-0.59); #Neutrophils 11.9 thou/uL (1.40-6.50); %Basophils 0.6 % (0.0-1.0); %Eosinophils 1.7 % (0.0-10.0); %Lymphocytes 7.6 % (21.0-51.0); %Monocytes 10.2 % (0.0-10.0); %Neutrophils 78.3 % (42.0-75.0); Hematocrit 35.1 % (42.0-52.0); Hemoglobin 12.4 g/dL (14.0-18.0); Mean Corpuscular HGB CONC 35.3 g/dL (32.0-36.0); Mean Corpuscular Hemoglobin 37.3 pg (27.0-31.0); Mean Corpuscular Volume 105.7 fl (78.0-98.0); Mean Platelet Volume 10.8 fL (7.4-10.4); RBC Distribution Width 16.7 % (11.5-14.5); Red Blood Cell (RBC) Count 3.32 mill/uL (4.70-6.10); White Blood Cell (WBC) Count 15.2 10x3/uL (4.8-10.8)
[2023-09-24 04:41] LABS: INR-International Normal Ratio 2.6; Prothrombin Time 29.1 sec (12.0-14.7)
[2023-09-24 04:42] LABS: PTT 48.5 sec (22.9-36.1)
[2023-09-24 05:08] LABS: Platelet Count 96 10x3/uL (130-400)
[2023-09-24] MEDS: metroNIDAZOLE 500 MG in Premix 1 BAG IVPB SCH ×3 (05:08→20:36)
[2023-09-24 05:22] LABS: ALT (SGPT) 32 U/L (8-55); AST (SGOT) 50 U/L (5-34); Albumin 2.3 g/dL (3.4-4.8); Alkaline Phosphatase 140 U/L (40-110); Anion Gap 14 mmol/L (10-20); BUN (Urea Nitrogen) 23 mg/dL (8.4-25.7); Bilirubin, Total 26.9 mg/dL (0.2-1.2); Calc. Creatinine Clearance 44 mL/min (70-130); Calcium 8.2 mg/dL (7.8-10.44); Carbon Dioxide 20 mmol/L (23-31); Chloride 101 mmol/L (98-107); Estimated GFR 57; Globulin 3.1 g/dL (2.4-3.5); Glucose 108 mg/dL (80-115); Potassium 3.8 mmol/L (3.5-5.1); Protein, Total 5.4 g/dL (5.8-8.1); Sodium 131 mmol/L (136-145)
[2023-09-24] MEDS ORDERED: Rifaximin 550 MG TAB PO SCH (09:00)
[2023-09-24] MEDS: Multivit, Therapeutic 1 TAB PO SCH (09:10)
[2023-09-24] MEDS: Lactulose 20 GM (30 mL) UDCUP PO SCH ×2 (09:10→20:35)
[2023-09-24] MEDS: Folic Acid 1 MG TAB PO SCH (09:10)
[2023-09-24] MEDS: Rifaximin 200 MG TAB PO SCH (09:11)
[2023-09-24] MEDS: Furosemide 40 MG TAB PO SCH (09:11)
[2023-09-24] MEDS: Spironolactone 100 MG TAB PO SCH (09:11)
[2023-09-24] MEDS: Thiamine 100 MG TAB PO SCH (09:11)
[2023-09-24] MEDS: Sodium Chloride 0.9% 1,000 ML IV SCH (13:56)
[2023-09-24] MEDS: Midodrine HCl 5 MG TAB PO SCH ×2 (15:46→20:36)
[2023-09-24] MEDS: Ondansetron PF 4 MG/2 ML Vial IVP PRN (15:46)
[2023-09-24] MEDS: Albumin 25% 25 GM (100 mL) BOT IVPB SCH ×2 (17:32→22:25)
[2023-09-25] MEDS: Rifaximin 550 MG TAB PO SCH ×3 (00:01→20:43)
[2023-09-25] MEDS: Rifaximin 200 MG TAB PO SCH (02:34)
[2023-09-25] MEDS: Acetaminophen 325 MG TAB PO PRN ×3 (03:18→20:43)
[2023-09-25] MEDS: cefTRIAXone\\ROCEPHIN 2 GM in Sodium Chloride 0.9% 100 ML IVPB SCH (03:19)
[2023-09-25] MEDS: metroNIDAZOLE 500 MG in Premix 1 BAG IVPB SCH ×3 (04:44→20:48)
[2023-09-25] MEDS: Albumin 25% 25 GM (100 mL) BOT IVPB SCH ×2 (06:04→12:29)
[2023-09-25 06:37] LABS: #Basophils 0.1 thou/uL (0.0-0.2); #Eosinphils 0.3 thou/uL (0.0-0.7); #Monocytes 0.8 thou/uL (0.11-0.59); #Neutrophils 10.1 thou/uL (1.40-6.50); %Basophils 0.5 % (0.0-1.0); %Lymphocytes 10.8 % (21.0-51.0); %Monocytes 6.5 % (0.0-10.0); %Neutrophils 78.6 % (42.0-75.0); Hematocrit 31.1 % (42.0-52.0); Mean Corpuscular HGB CONC 35.4 g/dL (32.0-36.0); Mean Corpuscular Hemoglobin 37.5 pg (27.0-31.0); Mean Corpuscular Volume 106.1 fl (78.0-98.0); Mean Platelet Volume 9.8 fL (7.4-10.4); Platelet Count 90 10x3/uL (130-400); RBC Distribution Width 16.9 % (11.5-14.5); Red Blood Cell (RBC) Count 2.93 mill/uL (4.70-6.10); White Blood Cell (WBC) Count 12.9 10x3/uL (4.8-10.8)
[2023-09-25 06:50] LABS: INR-International Normal Ratio 3.1; Prothrombin Time 33.2 sec (12.0-14.7)
[2023-09-25 06:51] LABS: PTT 57.9 sec (22.9-36.1)
[2023-09-25 07:15] LABS: ALT (SGPT) 22 U/L (8-55); AST (SGOT) 41 U/L (5-34); Albumin 2.9 g/dL (3.4-4.8); Alkaline Phosphatase 112 U/L (40-110); Anion Gap 12 mmol/L (10-20); BUN (Urea Nitrogen) 19 mg/dL (8.4-25.7); Bilirubin, Total 21.9 mg/dL (0.2-1.2); Calc. Creatinine Clearance 46 mL/min (70-130); Calcium 8.3 mg/dL (7.8-10.44); Carbon Dioxide 22 mmol/L (23-31); Chloride 104 mmol/L (98-107); Estimated GFR 60; Globulin 2.4 g/dL (2.4-3.5); Glucose 104 mg/dL (80-115); Magnesium 1.7 mg/dL (1.6-2.6); Potassium 2.9 mmol/L (3.5-5.1); Protein, Total 5.3 g/dL (5.8-8.1); Sodium 135 mmol/L (136-145)
[2023-09-25] MEDS: Folic Acid 1 MG TAB PO SCH (09:21)
[2023-09-25] MEDS: Multivit, Therapeutic 1 TAB PO SCH (09:22)
[2023-09-25] MEDS: Potassium Bicarbonate/Cit Ac 20 MEQ TAB PO SCH ×2 (09:22→12:29)
[2023-09-25] MEDS: Thiamine 100 MG TAB PO SCH (09:22)
[2023-09-25] MEDS: Lactulose 20 GM (30 mL) UDCUP PO SCH ×2 (09:22→20:44)
[2023-09-25] MEDS: Midodrine HCl 5 MG TAB PO SCH ×3 (09:22→20:43)
[2023-09-25] MEDS: Sodium Chloride 0.9% 1,000 ML IV SCH (10:09)
[2023-09-25] MEDS ORDERED: Phytonadione 5 MG TAB PO SCH (17:00)
[2023-09-25] MEDS ORDERED: Lactulose 20 GM (30 mL) UDCUP PO SCH (18:15)
[2023-09-25] MEDS ORDERED: Ondansetron PF 4 MG/2 ML Vial IVP SCH (20:30)
[2023-09-26] MEDS: Acetaminophen 325 MG TAB PO PRN ×3 (03:05→22:05)
[2023-09-26] MEDS: cefTRIAXone\\ROCEPHIN 2 GM in Sodium Chloride 0.9% 100 ML IVPB SCH (03:05)
[2023-09-26] MEDS: metroNIDAZOLE 500 MG in Premix 1 BAG IVPB SCH ×2 (05:24→12:55)
[2023-09-26] MEDS: Sodium Chloride 0.9% 1,000 ML IV SCH (05:24)
[2023-09-26 07:05] LABS: #Basophils 0.1 thou/uL (0.0-0.2); #Eosinphils 0.4 thou/uL (0.0-0.7); #Monocytes 0.7 thou/uL (0.11-0.59); #Neutrophils 10.2 thou/uL (1.40-6.50); %Basophils 0.6 % (0.0-1.0); %Eosinophils 3.2 % (0.0-10.0); %Lymphocytes 12.3 % (21.0-51.0); %Monocytes 5.2 % (0.0-10.0); %Neutrophils 77.3 % (42.0-75.0); Hematocrit 34.3 % (42.0-52.0); Hemoglobin 11.5 g/dL (14.0-18.0); Mean Corpuscular HGB CONC 33.5 g/dL (32.0-36.0); Mean Corpuscular Hemoglobin 37.1 pg (27.0-31.0); Mean Corpuscular Volume 110.6 fl (78.0-98.0); Mean Platelet Volume 9.7 fL (7.4-10.4); RBC Distribution Width 16.9 % (11.5-14.5); White Blood Cell (WBC) Count 13.2 10x3/uL (4.8-10.8)
[2023-09-26 07:30] LABS: INR-International Normal Ratio 3.9; PTT 60.7 sec (22.9-36.1); Prothrombin Time 39.6 sec (12.0-14.7)
[2023-09-26 07:39] LABS: Platelet Count 80 10x3/uL (130-400)
[2023-09-26 07:50] LABS: ALT (SGPT) 19 U/L (8-55); AST (SGOT) 44 U/L (5-34); Albumin 3.1 g/dL (3.4-4.8); Alkaline Phosphatase 101 U/L (40-110); Anion Gap 11 mmol/L (10-20); BUN (Urea Nitrogen) 17 mg/dL (8.4-25.7); Bilirubin, Total 19.5 mg/dL (0.2-1.2); Calc. Creatinine Clearance 56 mL/min (70-130); Calcium 8.5 mg/dL (7.8-10.44); Carbon Dioxide 20 mmol/L (23-31); Chloride 109 mmol/L (98-107); Estimated GFR 76; Glucose 91 mg/dL (80-115); Magnesium 1.8 mg/dL (1.6-2.6); Potassium 3.7 mmol/L (3.5-5.1); Protein, Total 5.1 g/dL (5.8-8.1); Sodium 136 mmol/L (136-145)
[2023-09-26 08:22] LABS: Burr Cells SLIGHT = 2-5 cells HPF (0-1); CellaVision Operator ID LAB.GE; Macrocytosis SLIGHT = 6-15 cells HPF (0-5); Platelet Adequacy Comment Platelets Decreased; Polychromasia SLIGHT = 2-3 cells HPF (0-2)
[2023-09-26] MEDS: Multivit, Therapeutic 1 TAB PO SCH (10:20)
[2023-09-26] MEDS: Thiamine 100 MG TAB PO SCH (10:20)
[2023-09-26] MEDS: Folic Acid 1 MG TAB PO SCH (10:20)
[2023-09-26] MEDS: Midodrine HCl 5 MG TAB PO SCH ×3 (10:20→20:11)
[2023-09-26] MEDS: Rifaximin 550 MG TAB PO SCH ×2 (10:20→20:11)
[2023-09-26] MEDS: Lactulose 20 GM (30 mL) UDCUP PO SCH ×2 (10:22→20:10)
[2023-09-26] MEDS ORDERED: Phytonadione 5 MG TAB PO SCH (11:15)
[2023-09-27] MEDS: Acetaminophen 325 MG TAB PO PRN ×3 (01:09→21:18)
[2023-09-27] MEDS ORDERED: Electrolyte Replacement Protocol 1 EACH FS SCH (01:15)
[2023-09-27] MEDS: Nitroglycerin 0.4 MG TAB (25 Tab Bottle) SL PRN (01:23)
[2023-09-27] MEDS ORDERED: Lidocaine 2% Viscous Solution 10 ML, Aluminum & Magnesium Hydroxide 30 ML SSW SCH (01:30)
[2023-09-27] MEDS: Sodium Chloride 0.9% 1,000 ML IV SCH (01:35)
[2023-09-27] MEDS: Ondansetron PF 4 MG/2 ML Vial IVP PRN (02:06)
[2023-09-27 02:14] LABS: Magnesium 1.9 mg/dL (1.6-2.6)
[2023-09-27 02:26] LABS: Critical Call Chem Troponin I NUR.JMQ@0225; Troponin I 0.271 ng/mL (< 0.028)
[2023-09-27] MEDS ORDERED: Aspirin 325 mg Enteric Coated Tablet PO SCH (02:30)
[2023-09-27] MEDS ORDERED: Magnesium 2 GM/50 ML(in water) 2 GM in Premix 1 BAG IVPB SCH (06:30)
[2023-09-27] MEDS: Thiamine 100 MG TAB PO SCH (10:17)
[2023-09-27] MEDS: Multivit, Therapeutic 1 TAB PO SCH (10:17)
[2023-09-27] MEDS: Midodrine HCl 5 MG TAB PO SCH ×3 (10:17→21:19)
[2023-09-27] MEDS: Lactulose 20 GM (30 mL) UDCUP PO SCH ×2 (10:18→21:20)
[2023-09-27] MEDS: Folic Acid 1 MG TAB PO SCH (10:18)
[2023-09-27 11:08] LABS: #Basophils 0.1 thou/uL (0.0-0.2); #Eosinphils 0.1 thou/uL (0.0-0.7); #Monocytes 0.7 thou/uL (0.11-0.59); #Neutrophils 13.9 thou/uL (1.40-6.50); %Basophils 0.3 % (0.0-1.0); %Eosinophils 0.7 % (0.0-10.0); %Lymphocytes 12.7 % (21.0-51.0); %Neutrophils 81.1 % (42.0-75.0); Hemoglobin 12.3 g/dL (14.0-18.0); Mean Corpuscular HGB CONC 34.2 g/dL (32.0-36.0); Mean Corpuscular Volume 108.4 fl (78.0-98.0); Mean Platelet Volume 10.4 fL (7.4-10.4); RBC Distribution Width 16.9 % (11.5-14.5); Red Blood Cell (RBC) Count 3.32 mill/uL (4.70-6.10); White Blood Cell (WBC) Count 17.2 10x3/uL (4.8-10.8)
[2023-09-27] MEDS: Rifaximin 550 MG TAB PO SCH ×2 (11:31→21:19)
[2023-09-27 11:58] LABS: ALT (SGPT) 26 U/L (8-55); AST (SGOT) 58 U/L (5-34); Albumin 2.8 g/dL (3.4-4.8); Alkaline Phosphatase 106 U/L (40-110); Anion Gap 16 mmol/L (10-20); BUN (Urea Nitrogen) 24 mg/dL (8.4-25.7); Bilirubin, Total 19.1 mg/dL (0.2-1.2); Calc. Creatinine Clearance 52 mL/min (70-130); Calcium 8.3 mg/dL (7.8-10.44); Carbon Dioxide 17 mmol/L (23-31); Chloride 109 mmol/L (98-107); Estimated GFR 70; Glucose 112 mg/dL (80-115); Protein, Total 5.3 g/dL (5.8-8.1); Sodium 138 mmol/L (136-145)
[2023-09-27 12:13] LABS: Platelet Count 94 10x3/uL (130-400)
[2023-09-27 12:40] LABS: INR-International Normal Ratio 3.6; Prothrombin Time 37.1 sec (12.0-14.7)
[2023-09-27 13:50] LABS: Bilirubin, Direct 13.4 mg/dL (0.1-0.3)
[2023-09-27] MEDS ORDERED: Vancomycin (BATCH) 1.25 GM in Premix 1 BAG IVPB SCH (18:00)
[2023-09-27] MEDS: Cefepime 1 GM in Sodium Chloride 0.9% 100 ML IVPB SCH (18:32)
[2023-09-27] MEDS ORDERED: Vancomycin 1 GM in Premix 1 BAG IVPB SCH (21:00)
[2023-09-28] MEDS: Cefepime 1 GM in Sodium Chloride 0.9% 100 ML IVPB SCH ×2 (05:39→17:27)
[2023-09-28] MEDS: Vancomycin HCl 750 MG in Sodium Chloride 0.9% 250 ML 250 ML IVPB SCH ×2 (06:43→20:13)
[2023-09-28 06:58] LABS: #Basophils 0.1 thou/uL (0.0-0.2); #Eosinphils 0.1 thou/uL (0.0-0.7); #Monocytes 0.7 thou/uL (0.11-0.59); #Neutrophils 11.8 thou/uL (1.40-6.50); %Basophils 0.3 % (0.0-1.0); %Eosinophils 0.8 % (0.0-10.0); %Lymphocytes 13.7 % (21.0-51.0); %Monocytes 4.5 % (0.0-10.0); %Neutrophils 79.2 % (42.0-75.0); Hematocrit 35.2 % (42.0-52.0); Mean Corpuscular HGB CONC 34.1 g/dL (32.0-36.0); Mean Corpuscular Hemoglobin 36.7 pg (27.0-31.0); Mean Corpuscular Volume 107.6 fl (78.0-98.0); Mean Platelet Volume 10.1 fL (7.4-10.4); Platelet Count 91 10x3/uL (130-400); RBC Distribution Width 17.1 % (11.5-14.5); Red Blood Cell (RBC) Count 3.27 mill/uL (4.70-6.10); White Blood Cell (WBC) Count 14.9 10x3/uL (4.8-10.8)
[2023-09-28 07:10] LABS: INR-International Normal Ratio 3.5; Prothrombin Time 36.9 sec (12.0-14.7)
[2023-09-28 07:22] LABS: Anion Gap 10 mmol/L (10-20); BUN (Urea Nitrogen) 33 mg/dL (8.4-25.7); Calc. Creatinine Clearance 44 mL/min (70-130); Calcium 8.5 mg/dL (7.8-10.44); Carbon Dioxide 20 mmol/L (23-31); Chloride 114 mmol/L (98-107); Estimated GFR 57; Glucose 99 mg/dL (80-115); Potassium 4.1 mmol/L (3.5-5.1); Sodium 140 mmol/L (136-145)
[2023-09-28] MEDS ORDERED: Midodrine HCl 5 MG TAB PO SCH (10:30)
[2023-09-28] MEDS: Folic Acid 1 MG TAB PO SCH (11:25)
[2023-09-28] MEDS: Multivit, Therapeutic 1 TAB PO SCH (11:26)
[2023-09-28] MEDS: Thiamine 100 MG TAB PO SCH (11:26)
[2023-09-28] MEDS: Rifaximin 550 MG TAB PO SCH ×2 (11:27→20:56)
[2023-09-28] MEDS: Lactulose 20 GM (30 mL) UDCUP PO SCH ×2 (11:38→20:55)
[2023-09-28] MEDS: Sodium Chloride 0.9% 1,000 ML IV SCH (12:22)
[2023-09-28] MEDS: Midodrine HCl 5 MG TAB PO SCH ×3 (12:23→20:56)
[2023-09-28] MEDS: Nitroglycerin 0.4 MG TAB (25 Tab Bottle) SL PRN ×2 (12:35→23:21)
[2023-09-28] MEDS: Acetaminophen 325 MG TAB PO PRN ×2 (12:36→20:13)
[2023-09-28] MEDS: Albumin 25% 25 GM (100 mL) BOT IVPB SCH ×3 (12:37→23:37)
[2023-09-29 04:44] LABS: #Basophils 0.1 thou/uL (0.0-0.2); #Eosinphils 0.2 thou/uL (0.0-0.7); #Monocytes 0.7 thou/uL (0.11-0.59); #Neutrophils 9.1 thou/uL (1.40-6.50); %Basophils 0.4 % (0.0-1.0); %Eosinophils 1.4 % (0.0-10.0); %Lymphocytes 17.7 % (21.0-51.0); %Monocytes 5.3 % (0.0-10.0); %Neutrophils 73.4 % (42.0-75.0); Hematocrit 33.4 % (42.0-52.0); Hemoglobin 11.3 g/dL (14.0-18.0); Mean Corpuscular HGB CONC 33.8 g/dL (32.0-36.0); Mean Corpuscular Hemoglobin 36.9 pg (27.0-31.0); Mean Corpuscular Volume 109.2 fl (78.0-98.0); Mean Platelet Volume 10.2 fL (7.4-10.4); Platelet Count 90 10x3/uL (130-400); RBC Distribution Width 17.2 % (11.5-14.5); Red Blood Cell (RBC) Count 3.06 mill/uL (4.70-6.10); White Blood Cell (WBC) Count 12.4 10x3/uL (4.8-10.8)
[2023-09-29] MEDS: Lidocaine 2% Viscous Solution 10 ML, Aluminum & Magnesium Hydroxide 30 ML SSW SCH ×2 (04:51→23:49)
[2023-09-29 04:59] LABS: INR-International Normal Ratio 3.8; Prothrombin Time 39.5 sec (12.0-14.7)
[2023-09-29 05:01] LABS: PTT 71.3 sec (22.9-36.1)
[2023-09-29] MEDS: Acetaminophen 325 MG TAB PO PRN ×3 (05:04→21:24)
[2023-09-29] MEDS: Cefepime 1 GM in Sodium Chloride 0.9% 100 ML IVPB SCH ×2 (05:05→17:45)
[2023-09-29 05:07] LABS: ALT (SGPT) 19 U/L (8-55); AST (SGOT) 51 U/L (5-34); Albumin 3.7 g/dL (3.4-4.8); Alkaline Phosphatase 87 U/L (40-110); Bilirubin, Total 17.7 mg/dL (0.2-1.2); Protein, Total 5.6 g/dL (5.8-8.1)
[2023-09-29 05:10] LABS: Anion Gap 13 mmol/L (10-20); BUN (Urea Nitrogen) 28 mg/dL (8.4-25.7); Calc. Creatinine Clearance 48 mL/min (70-130); Calcium 9.4 mg/dL (7.8-10.44); Carbon Dioxide 19 mmol/L (23-31); Chloride 118 mmol/L (98-107); Estimated GFR 65; Glucose 99 mg/dL (80-115); Potassium 3.6 mmol/L (3.5-5.1); Sodium 146 mmol/L (136-145)
[2023-09-29 05:29] LABS: Vancomycin, Trough 14.2 ug/mL
[2023-09-29] MEDS: Albumin 25% 25 GM (100 mL) BOT IVPB SCH ×4 (05:38→23:49)
[2023-09-29] MEDS: Vancomycin HCl 750 MG in Sodium Chloride 0.9% 250 ML 250 ML IVPB SCH ×2 (05:41→20:12)
[2023-09-29] MEDS: Octreotide Acetate 100 MCG/ML VIAL SC SCH ×3 (06:50→21:29)
[2023-09-29 10:00] LABS: Bilirubin, Direct 12.7 mg/dL (0.1-0.3)
[2023-09-29] MEDS: Multivit, Therapeutic 1 TAB PO SCH (10:05)
[2023-09-29] MEDS: Folic Acid 1 MG TAB PO SCH (10:06)
[2023-09-29] MEDS: Thiamine 100 MG TAB PO SCH (10:06)
[2023-09-29] MEDS: Rifaximin 550 MG TAB PO SCH ×2 (10:06→21:23)
[2023-09-29] MEDS: Lactulose 20 GM (30 mL) UDCUP PO SCH ×3 (10:06→21:30)
[2023-09-29] MEDS: Midodrine HCl 5 MG TAB PO SCH ×3 (10:10→21:31)
[2023-09-29] MEDS ORDERED: Phytonadione 10 MG in Sodium Chloride 0.9% 50 ML IVPB SCH (17:45)
[2023-09-29] MEDS: GUAIFENESIN SF SOLN 200 MG/10 ML UDCUP PO PRN (21:26)
[2023-09-29] MEDS ORDERED: traMADol HCl 50 MG TAB PO SCH (23:30)
[2023-09-30] MEDS: Cefepime 1 GM in Sodium Chloride 0.9% 100 ML IVPB SCH ×2 (04:52→18:07)
[2023-09-30] MEDS: Octreotide Acetate 100 MCG/ML VIAL SC SCH ×3 (04:52→21:42)
[2023-09-30] MEDS: Albumin 25% 25 GM (100 mL) BOT IVPB SCH (04:53)
[2023-09-30] MEDS: Vancomycin HCl 750 MG in Sodium Chloride 0.9% 250 ML 250 ML IVPB SCH ×2 (05:58→18:08)
[2023-09-30 06:24] LABS: #Eosinphils 0.1 thou/uL (0.0-0.7); #Monocytes 0.4 thou/uL (0.11-0.59); #Neutrophils 7.5 thou/uL (1.40-6.50); %Basophils 0.2 % (0.0-1.0); %Lymphocytes 17.7 % (21.0-51.0); %Monocytes 4.2 % (0.0-10.0); %Neutrophils 74.5 % (42.0-75.0); Hematocrit 31.3 % (42.0-52.0); Hemoglobin 10.3 g/dL (14.0-18.0); Mean Corpuscular HGB CONC 32.9 g/dL (32.0-36.0); Mean Corpuscular Hemoglobin 37.3 pg (27.0-31.0); Mean Corpuscular Volume 113.4 fl (78.0-98.0); Mean Platelet Volume 10.2 fL (7.4-10.4); RBC Distribution Width 17.6 % (11.5-14.5); Red Blood Cell (RBC) Count 2.76 mill/uL (4.70-6.10); White Blood Cell (WBC) Count 10.1 10x3/uL (4.8-10.8)
[2023-09-30 06:32] LABS: Platelet Count 78 10x3/uL (130-400)
[2023-09-30 06:35] LABS: INR-International Normal Ratio 4.2; Prothrombin Time 42.2 sec (12.0-14.7)
[2023-09-30 06:43] LABS: Anion Gap 14 mmol/L (10-20); BUN (Urea Nitrogen) 30 mg/dL (8.4-25.7); Calc. Creatinine Clearance 51 mL/min (70-130); Calcium 9.7 mg/dL (7.8-10.44); Carbon Dioxide 18 mmol/L (23-31); Chloride 123 mmol/L (98-107); Estimated GFR 69; Glucose 100 mg/dL (80-115); Potassium 3.5 mmol/L (3.5-5.1)
[2023-09-30 06:45] LABS: Immunoglob - G (Total IgG) 823 mg/dL (540-1822)
[2023-09-30 06:46] LABS: Immunoglob - M (Total IgM) 252 mg/dL (22-240)
[2023-09-30 07:02] LABS: Ferritin 599.83 ng/mL (22-322)
[2023-09-30 07:15] LABS: HBCM Index 0.11 S/CO (0-0.79); HBSAg Index 0.25 S/CO (0-0.99); Hep A IgM AB Non-Reactive S/CO (NonReactive); Hep A IgM S/CO 0.52 S/CO (0-0.79); Hep B Surf Ag Non-Reactive S/CO (NonReactive); Hep C IgG Ab Non-Reactive S/CO (NonReactive); Hep C Index 0.06 S/CO (0-0.79); Hepatitis B Core IgM Abs Non-Reactive S/CO (NonReactive)
[2023-09-30 07:18] LABS: Critical Call Chemistry NUR.VE AT 07108; Sodium 151 mmol/L (136-145)
[2023-09-30 07:29] LABS: ALT (SGPT) 17 U/L (8-55); AST (SGOT) 54 U/L (5-34); Albumin 3.9 g/dL (3.4-4.8); Alkaline Phosphatase 68 U/L (40-110); Bilirubin, Direct 9.9 mg/dL (0.1-0.3); Iron 55 ug/dL (65-175); Protein, Total 5.7 g/dL (5.8-8.1)
[2023-09-30] MEDS ORDERED: Potassium Bicarbonate/Cit Ac 20 MEQ TAB PO SCH (08:00)
[2023-09-30] MEDS ORDERED: Dextrose 5% in Water 1,000 ML IV SCH (08:45)
[2023-09-30 08:59] LABS: Iron Binding Capacity, Total 38 mcg/dL (261-462)
[2023-09-30] MEDS: GUAIFENESIN SF SOLN 200 MG/10 ML UDCUP PO PRN ×2 (09:25→21:39)
[2023-09-30] MEDS: Rifaximin 550 MG TAB PO SCH ×2 (10:39→20:24)
[2023-09-30] MEDS: Potassium Chloride 20 MEQ in Premix 1 BAG IVPB SCH ×2 (10:39→13:33)
[2023-09-30] MEDS: Midodrine HCl 5 MG TAB PO SCH ×3 (10:40→20:22)
[2023-09-30] MEDS: Multivit, Therapeutic 1 TAB PO SCH (10:40)
[2023-09-30] MEDS: Thiamine 100 MG TAB PO SCH (10:40)
[2023-09-30] MEDS: Folic Acid 1 MG TAB PO SCH (10:40)
[2023-09-30] MEDS: Lactulose 20 GM (30 mL) UDCUP PO SCH ×3 (10:41→20:34)
[2023-09-30] MEDS: Acetaminophen 325 MG TAB PO PRN ×2 (10:59→16:21)
[2023-09-30] MEDS ORDERED: Furosemide 40 MG (4 mL) VIAL SLOW IVP SCH ×2 (12:00→18:00)
[2023-09-30] MEDS: Ipratropium/Albuterol 3 ML NEB NEB SCH ×3 (13:40→23:46)
[2023-09-30 14:38] LABS: ANA Symphony (Qualitative) Negative (Negative); ANA Symphony (Quantitative) 0.4 Ratio (< 0.7 Negative); EliA Vaculitis New Method **** NEW METHOD ****; Mitochondrial Ab 0.8 U/mL (<4 Negative); dsDNA IgG Antibody 1.8 IU/mL (<10 Negative)
[2023-09-30 14:42] LABS: Sodium 151 mmol/L (136-145)
[2023-09-30 17:24] LABS: Potassium 4.3 mmol/L (3.5-5.1)
[2023-09-30 17:28] LABS: Sodium 150 mmol/L (136-145)
[2023-09-30] MEDS: traMADol HCl 50 MG TAB PO PRN (20:23)
[2023-09-30 23:40] LABS: Sodium 150 mmol/L (136-145)
[2023-10-01 02:24] LABS: Sodium 150 mmol/L (136-145)
[2023-10-01] MEDS: Ipratropium/Albuterol 3 ML NEB NEB SCH ×6 (03:30→23:19)
[2023-10-01] MEDS: Furosemide 40 MG (4 mL) VIAL SLOW IVP SCH ×2 (05:32→13:58)
[2023-10-01] MEDS: Cefepime 1 GM in Sodium Chloride 0.9% 100 ML IVPB SCH (05:32)
[2023-10-01] MEDS: Octreotide Acetate 100 MCG/ML VIAL SC SCH ×3 (05:42→23:46)
[2023-10-01 06:33] LABS: #Basophils 0.1 thou/uL (0.0-0.2); #Eosinphils 0.2 thou/uL (0.0-0.7); #Monocytes 0.4 thou/uL (0.11-0.59); #Neutrophils 8.5 thou/uL (1.40-6.50); %Basophils 0.5 % (0.0-1.0); %Monocytes 3.7 % (0.0-10.0); %Neutrophils 73.7 % (42.0-75.0); Hematocrit 35.1 % (42.0-52.0); Hemoglobin 11.5 g/dL (14.0-18.0); Mean Corpuscular HGB CONC 32.8 g/dL (32.0-36.0); Mean Corpuscular Hemoglobin 37.2 pg (27.0-31.0); Mean Corpuscular Volume 113.6 fl (78.0-98.0); Mean Platelet Volume 10.1 fL (7.4-10.4); RBC Distribution Width 17.8 % (11.5-14.5); Red Blood Cell (RBC) Count 3.09 mill/uL (4.70-6.10); White Blood Cell (WBC) Count 11.5 10x3/uL (4.8-10.8)
[2023-10-01 06:35] LABS: Platelet Count 82 10x3/uL (130-400)
[2023-10-01 06:44] LABS: INR-International Normal Ratio 2.8
[2023-10-01 06:45] LABS: PTT 53.2 sec (22.9-36.1)
[2023-10-01 06:54] LABS: Vancomycin, Trough 17.9 ug/mL
[2023-10-01 07:04] LABS: Anion Gap 14 mmol/L (10-20); BUN (Urea Nitrogen) 28 mg/dL (8.4-25.7); Calc. Creatinine Clearance 56 mL/min (70-130); Calcium 9.9 mg/dL (7.8-10.44); Carbon Dioxide 20 mmol/L (23-31); Chloride 120 mmol/L (98-107); Estimated GFR 78; Glucose 113 mg/dL (80-115); Potassium 3.5 mmol/L (3.5-5.1); Sodium 150 mmol/L (136-145)
[2023-10-01 07:16] LABS: ALT (SGPT) 21 U/L (8-55); AST (SGOT) 61 U/L (5-34); Alkaline Phosphatase 82 U/L (40-110); Bilirubin, Total 18.6 mg/dL (0.2-1.2); Protein, Total 6.1 g/dL (5.8-8.1)
[2023-10-01] MEDS: Folic Acid 1 MG TAB PO SCH (08:32)
[2023-10-01] MEDS: Multivit, Therapeutic 1 TAB PO SCH (08:32)
[2023-10-01] MEDS: Vancomycin HCl 750 MG in Sodium Chloride 0.9% 250 ML 250 ML IVPB SCH (08:32)
[2023-10-01] MEDS: Thiamine 100 MG TAB PO SCH (08:32)
[2023-10-01] MEDS: GUAIFENESIN SF SOLN 200 MG/10 ML UDCUP PO PRN (08:32)
[2023-10-01] MEDS: Midodrine HCl 5 MG TAB PO SCH ×3 (08:33→20:41)
[2023-10-01] MEDS: Lactulose 20 GM (30 mL) UDCUP PO SCH ×5 (08:33→20:31)
[2023-10-01] MEDS: Rifaximin 550 MG TAB PO SCH ×2 (08:38→20:39)
[2023-10-01] MEDS: traMADol HCl 50 MG TAB PO PRN ×2 (09:37→17:27)
[2023-10-01] MEDS ORDERED: Potassium Bicarbonate/Cit Ac 20 MEQ TAB PO SCH ×2 (10:00→21:00)
[2023-10-01] MEDS ORDERED: Electrolyte Replacement Protocol FS PRN (10:00)
[2023-10-01 13:36] VITALS: BMI 20.2
[2023-10-01] MEDS: Albumin 25% 25 GM (100 mL) BOT IVPB SCH ×3 (13:58→23:48)
[2023-10-01] MEDS: Acetaminophen 325 MG TAB PO PRN (14:06)
[2023-10-01 15:15] LABS: Alpha-1-Antitrypsin 93 mg/dL (101-187)
[2023-10-01 15:51] LABS: Potassium 3.5 mmol/L (3.5-5.1)
[2023-10-01] MEDS: DRY MOUTH SPRAY FS SCH ×3 (18:34→23:48)
[2023-10-01] MEDS: Lorazepam 1 MG TAB PO SCH (20:36)
[2023-10-01] MEDS: Morphine 2 MG/ML VIAL SLOW IVP PRN (20:39)
[2023-10-01] MEDS: Potassium Chloride 20 MEQ in Premix 1 BAG IVPB SCH (21:45)
[2023-10-02] MEDS: Lorazepam 1 MG TAB PO SCH
[2023-10-02] MEDS ORDERED: Lorazepam 2 MG/ML VIAL SLOW IVP SCH (00:15)
[2023-10-02] MEDS: Ondansetron PF 4 MG/2 ML Vial IVP PRN ×2 (00:24→09:52)
[2023-10-02] MEDS: Morphine 2 MG/ML VIAL SLOW IVP PRN ×4 (00:24→15:13)
[2023-10-02] MEDS: Potassium Chloride 20 MEQ in Premix 1 BAG IVPB SCH (02:00)
[2023-10-02] MEDS ORDERED: Metoprolol Tartrate 5 MG (5 mL) VIAL IVP SCH (02:30)
[2023-10-02] MEDS: Ipratropium/Albuterol 3 ML NEB NEB SCH ×5 (02:53→14:41)
[2023-10-02 04:10] LABS: Anion Gap 18 mmol/L (10-20); BUN (Urea Nitrogen) 36 mg/dL (8.4-25.7); Calc. Creatinine Clearance 39 mL/min (70-130); Calcium 10.2 mg/dL (7.8-10.44); Carbon Dioxide 21 mmol/L (23-31); Chloride 118 mmol/L (98-107); Estimated GFR 51; Glucose 135 mg/dL (80-115); Magnesium 3.2 mg/dL (1.6-2.6); Potassium 4.4 mmol/L (3.5-5.1)
[2023-10-02 04:21] LABS: Sodium 153 mmol/L (136-145)
[2023-10-02] MEDS ORDERED: Albumin 25% 25 GM (100 mL) BOT IVPB SCH (05:00)
[2023-10-02] MEDS: Furosemide 40 MG (4 mL) VIAL SLOW IVP SCH (05:16)
[2023-10-02] MEDS: Albumin 25% 25 GM (100 mL) BOT IVPB SCH (05:16)
[2023-10-02] MEDS: Octreotide Acetate 100 MCG/ML VIAL SC SCH ×2 (05:26→14:07)
[2023-10-02] MEDS: Lactulose 20 GM (30 mL) UDCUP PO SCH ×4 (09:23→14:41)
[2023-10-02] MEDS: Folic Acid 1 MG TAB PO SCH (09:23)
[2023-10-02] MEDS: Midodrine HCl 5 MG TAB PO SCH (09:23)
[2023-10-02] MEDS: DRY MOUTH SPRAY FS SCH ×3 (09:23→14:41)
[2023-10-02] MEDS: Thiamine 100 MG TAB PO SCH (09:24)
[2023-10-02] MEDS: Multivit, Therapeutic 1 TAB PO SCH (09:24)
[2023-10-02] MEDS: Rifaximin 550 MG TAB PO SCH ×2 (09:24)
[2023-10-02] MEDS: Acetaminophen 650 MG Suppository PR PRN ×2 (11:36→15:02)
[2023-10-02] MEDS ORDERED: Lorazepam 2 MG/ML VIAL SLOW IVP PRN (13:52)
[2023-10-02] MEDS: Acetaminophen 325 MG TAB PO PRN (15:01)
[2023-10-02 15:09] VITALS: BP 80/55
[2023-10-02 16:15] LABS: Smooth Muscle Total ABS 9 Units (0-19)
[2023-10-02 17:26] VITALS: TEMP 99.7
== END 2023-10-02 23:50 | disposition expired | DRG 432 ==
LOC: ERS 23:19 → ERHOLD 09-20 03:01 → 2SE 09-20 16:02 → T4-B 09-25 01:32 → 2NO 09-27 04:55
PROVIDERS: ADMIT Student in an Organized Health Care Education/Training Program; ATTEND Hospitalist
PROC: 0W9G3ZZ Drainage of Peritoneal Cavity, Percutaneous Approach (ICD-10-PCS; principal; 2023-09-23)
PROC: 30233J1 Transfusion of Nonautologous Serum Albumin into Peripheral Vein, Percutaneous Approach (ICD-10-PCS; 2023-09-24)
PROC: 30233L1 Transfusion of Nonautologous Fresh Plasma into Peripheral Vein, Percutaneous Approach (ICD-10-PCS; 2023-09-30)
PROC: 30233K1 Transfusion of Nonautologous Frozen Plasma into Peripheral Vein, Percutaneous Approach (ICD-10-PCS; 2023-09-30)
DX: K70.31 Alcoholic cirrhosis of liver with ascites (principal); G93.41 Metabolic encephalopathy; E87.1 Hypo-osmolality and hyponatremia; D68.9 Coagulation defect, unspecified; K76.6 Portal hypertension; N17.9 Acute kidney failure, unspecified; E87.0 Hyperosmolality and hypernatremia; I5A Non-ischemic myocardial injury (non-traumatic); D69.6 Thrombocytopenia, unspecified; F10.20 Alcohol dependence, uncomplicated; K76.82 Hepatic encephalopathy; E88.09 Other disorders of plasma-protein metabolism, not elsewhere classified; Z66 Do not resuscitate; I11.0 Hypertensive heart disease with heart failure; I50.9 Heart failure, unspecified; K76.1 Chronic passive congestion of liver; Z79.899 Other long term (current) drug therapy
CPT/HCPCS: 36415; 36430; 49083; 70450; 71045; 74177; 76705; 80048; 80053; 80074; 80076; 80202; 80306; 80307; 81001; 82042; 82103; 82105; 82140; 82248; 82728; 83516; 83540; 83550; 83605; 83615; 83735; 83880; 84145; 84157; 84484; 85025; 85060; 85610; 85730; 86015; 86038; 86225; 86850; 86900; 86901; 87040; 87070; 87205; 89051; 93005; 93010; 93306; 94640; 96365; 96375; J0692; J0696; J1940; J2060; J2272; J2354; J2405; J3010; J3370; J3430; J3475; J3480; J3490; J7050; J7070; J7620; P9047; P9059; Q9967